=== PATIENT | female | born 1970 | race Caucasian/White ===

== ENCOUNTER 2023-04-28 10:05 | Outpatient (CLI) | payer BC | END 2023-04-28 10:06 | disposition home or self-care (01) | LOC: BICRAD 10:05 | PROVIDERS: ATTEND Chiropractor | DX: M54.2 Cervicalgia (principal); M53.82 Other specified dorsopathies, cervical region; M53.84 Other specified dorsopathies, thoracic region; M79.10 Myalgia, unspecified site; M47.812 Spondylosis without myelopathy or radiculopathy, cervical region; M50.322 Other cervical disc degeneration at C5-C6 level; M50.323 Other cervical disc degeneration at C6-C7 level | CPT/HCPCS: 72052 ==

== ENCOUNTER 2023-07-06 10:36 | Outpatient (CLI) | payer BC | END 2023-07-06 10:37 | disposition home or self-care (01) | LOC: BICRAD 10:36 | PROVIDERS: ATTEND Internal Medicine Rheumatology | DX: M25.512 Pain in left shoulder (principal) ==

== ENCOUNTER 2023-11-01 11:37 | Outpatient (CLI) | payer BC | END 2023-11-01 11:38 | disposition home or self-care (01) | LOC: BICMRI 11:37 → RAD 11:38 | PROVIDERS: ATTEND Internal Medicine Rheumatology | DX: M43.02 Spondylolysis, cervical region (principal); M48.02 Spinal stenosis, cervical region | CPT/HCPCS: 72141 ==